=== PATIENT | male | born 1965 | race Caucasian/White ===

== ENCOUNTER 2025-10-12 09:55 | Outpatient (CLI) | payer BC ==
[2025-10-12 11:03] LABS: #Basophils 0.05 10x3/uL (0.0-0.2); #Eosinophils 0.23 10x3/uL (0.0-0.7); #Monocytes 0.60 10x3/uL (0.11-0.59); #Neutrophils 4.20 10x3/uL (1.40-6.50); %Basophils 0.7 % (0.0-1.0); %Eosinophils 3.4 % (0.0-10.0); %Lymphocytes 24.9 % (21.0-51.0); %Monocytes 8.8 % (0.0-10.0); %Neutrophils 61.8 % (42.0-75.0); Hematocrit 40.9 % (42.0-52.0); Hemoglobin 14.3 g/dL (14.0-18.0); Mean Corpuscular Hemoglobin 32.6 pg (27.0-31.0); Mean Corpuscular Volume 93.2 fL (78.0-98.0); Platelet Count 205 10x3/uL (130-400); Red Blood Cell (RBC) Count 4.39 mill/uL (4.70-6.10); White Blood Cell (WBC) Count 6.80 10x3/uL (4.8-10.8)
[2025-10-12 11:36] LABS: Anion Gap 13 mmol/L (10-20); BUN (Urea Nitrogen) 13 mg/dL (8.4-25.7); Calc. Creatinine Clearance 0 mL/min (70-130); Calcium 8.9 mg/dL (7.8-10.44); Carbon Dioxide 24 mmol/L (22-29); Chloride 106 mmol/L (98-107); Glucose 124 mg/dL (70-105); Potassium 4.3 mmol/L (3.5-5.1); Sodium 139 mmol/L (136-145)
== END 2025-10-12 09:56 | disposition home or self-care (01) ==
LOC: LABBT 09:55
PROVIDERS: ATTEND Orthopaedic Surgery
DX: Z01.818 Encounter for other preprocedural examination (principal); M75.111 Incomplete rotator cuff tear or rupture of right shoulder, not specified as traumatic
CPT/HCPCS: 80048; 85025; 93005; 93010

== ENCOUNTER 2025-10-15 05:33 | Day surgery (SDC) | payer BC ==
[2025-10-12 10:36] VITALS: BMI 29.7
[2025-10-15] MEDS ORDERED: Ropivacaine 0.5% HCl/PF (150 MG/30 ML VIAL) ONE (06:24)
[2025-10-15] MEDS ORDERED: Ropivacaine 0.2% HCl/PF 20 ML ONE (06:24)
[2025-10-15] MEDS ORDERED: Lidocaine 1% (PF) 30 ML VIAL ONE (06:31)
[2025-10-15] MEDS ORDERED: CEFAZOLIN 2 GM VIAL ONE (06:58)
[2025-10-15] MEDS ORDERED: Lidocaine 1% PF 5 ML VIAL ONE (07:06)
[2025-10-15] MEDS ORDERED: Rocuronium Bromide 10 MG/ML (10ML VIAL) ONE (07:06)
[2025-10-15] MEDS ORDERED: Ropivacaine 0.2% 550 ML 550 ML NERVE BLCK SCH (07:15)
[2025-10-15] MEDS ORDERED: Ondansetron PF 4 MG/2 ML Vial IVP PRN (07:15)
[2025-10-15] MEDS ORDERED: PROPOFOL 200 MG/20 ML VIAL ONE (07:47)
[2025-10-15] MEDS ORDERED: Ondansetron PF 4 MG/2 ML Vial ONE (08:08)
[2025-10-15] MEDS ORDERED: SUGAMMADEX SODIUM 200 MG/2 ML VIAL ONE (08:46)
== END 2025-10-15 13:11 | disposition home or self-care (01) ==
LOC: SDC 05:33
PROVIDERS: ATTEND Orthopaedic Surgery
PROC: 3E0T3BZ Introduction of Anesthetic Agent into Peripheral Nerves and Plexi, Percutaneous Approach (ICD-10-PCS; principal; 2025-10-15)
PROC: 0RBJ4ZZ Excision of Right Shoulder Joint, Percutaneous Endoscopic Approach (ICD-10-PCS; principal; 2025-10-15)
PROC: 0LS30ZZ Reposition Right Upper Arm Tendon, Open Approach (ICD-10-PCS; principal; 2025-10-15)
DX: S43.431A Superior glenoid labrum lesion of right shoulder, initial encounter (principal); M19.011 Primary osteoarthritis, right shoulder; I10 Essential (primary) hypertension; E78.00 Pure hypercholesterolemia, unspecified; Z98.890 Other specified postprocedural states; Z79.899 Other long term (current) drug therapy; X58.XXXA Exposure to other specified factors, initial encounter; Y93.64 Activity, baseball
CPT/HCPCS: A4306; C1713; J0169; J1100; J2003; J2250; J2405; J2704; J2795; J3010